=== PATIENT | male | born 1990 | race Two or more races ===

== ENCOUNTER 2017-04-08 14:31 | Emergency (ER) | payer SELFPAY ==
[~2017-04-08] VITALS: Ht 162.6 cm; Wt 59.0 kg
[2017-04-08 17:20] VITALS: BP 130/80
--- NOTE | 2017-04-08 21:11 | Emergency Room Report ---
History of Present Illness General Chief Complaint: Alcohol Intoxication Source: EMS Present Illness Allergies: Coded Allergies: UNABLE TO ASSESS (Unverified , 04/08/17) Nursing Documentation-[facility] Past Medical History Deferred: Pt Cognitively Impaired Physical Exam Vital Signs Date Time Temp Pulse Resp B/P (MAP) Pulse Ox O2 Delivery O2 Flow Rate FiO2 04/08/17 14:05 78 20 130/80 100 Room Air Medical Decision Making Diagnostic Impression: Primary Impression: Acute alcoholic intoxication ER Course RN informed me patient left ED Was not in waiting room or in surrounding ER area Last Vital Signs Date Time Temp Pulse Resp B/P (MAP) Pulse Ox O2 Delivery O2 Flow Rate FiO2 04/08/17 17:20 70 20 130/80 99 Room Air Disposition: LEFT W/OUT BEING SEEN Condition: Unknown Referrals: NOT CHOSEN [facility]/,REFERRING (PCP) TAYLOR STILES M.D. Apr 08, 2017 21:11
== END 2017-04-08 17:30 | disposition left against medical advice (07) ==
LOC: EDBD 14:31 → EMR 17:20 → EDBD 17:20 → EMR 17:30
DX: F10.129 Alcohol abuse with intoxication, unspecified (principal); Z53.21 Procedure and treatment not carried out due to patient leaving prior to being seen by health care provider
CPT/HCPCS: 99281

== ENCOUNTER 2017-10-30 18:58 | Emergency (ER) | payer SELFPAY ==
[~2017-10-30] VITALS: Ht 170.2 cm; Wt 72.6 kg
[2017-10-30 19:30] VITALS: BP 122/78
--- NOTE | 2017-10-30 19:37 | Emergency Room Report ---
History of Present Illness General Chief Complaint: Altered Mental Status Source: Patient, EMS (Vipul Magana MD) Present Illness HPI Patient was found lying down in the middle of the street. Patient is unknown onset . he reports drinking heavily earlier in the day. He denies new injuries or pain. (Vipul Magana MD) Allergies: Coded Allergies: No Known Allergies (Unverified , 10/30/17) UNABLE TO ASSESS (Unverified , 04/08/17) Patient History Past Medical History: see triage record Reviewed Nursing Documentation: PMH: Agreed; PSxH: Agreed (Vipul Magana MD) Nursing Documentation-PMH Past Medical History Deferred: No Family Available Past Medical History: Deferred (Vipul Magana MD) Review of Systems All Other Systems: negative except mentioned in HPI (Vipul Magana MD) Physical Exam Vital Signs Date Time Temp Pulse Resp B/P (MAP) Pulse Ox O2 Delivery O2 Flow Rate FiO2 10/30/17 18:54 99.0 74 16 116/75 99 Room Air 99.0 Sp02 EP Interpretation: reviewed, normal General Appearance: normal inspection, well appearing, no apparent distress, alert Head: atraumatic ENT: normal ENT inspection, hearing grossly normal, normal voice Neck: normal inspection, full range of motion, supple, no bony tend Respiratory: normal inspection, lungs clear, normal breath sounds, no respiratory distress, no retraction, no wheezing Cardiovascular #1: regular rate, rhythm, no edema Gastrointestinal: normal inspection, normal bowel sounds, non tender, soft, no guarding, no hernia Genitourinary: no CVA tenderness Musculoskeletal: normal inspection, back normal, normal range of motion Neurologic: normal inspection, alert, responsive, speech normal Psychiatric: normal inspection, judgement/insight normal, mood/affect normal Skin: normal inspection, normal color, no rash (Vipul Magana MD) Medical Decision Making Diagnostic Impression: Primary Impression: Acute alcoholic intoxication ER Course Patient was in for altered mental status. Differential diagnosis included but was not limited to alcohol intoxication, ischemic stroke, subarachnoid hemorrhage, hypoglycemia, spinal cord injury, neurodegenerative disorder, urinary tract infection, hypoxemia.Patient was noted to have initially confused mental status. Patient had gradual improvement of neurologic status. The patient was endorsed to Dr. Lucia pending sobering (Vipul Magana MD) ER Course Please refer to the initial note for the presentation patient was apparently verbal upon arrival He has been sleeping throughout his stay in the ER At this time of dictation patient has awakened GCS 15 he does admit to drinking alcohol yesterday Patient is ambulatory and requesting to go home patient stable for close outpatient follow-up (Des Lucia DO) Last Vital Signs Date Time Temp Pulse Resp B/P (MAP) Pulse Ox O2 Delivery O2 Flow Rate FiO2 10/30/17 18:54 99.0 74 16 116/75 99 Room Air 99.0 Status: improved (Vipul Magana MD) Status: improved (Des Lucia DO) Disposition: HOME, SELF-CARE Condition: Stable Additional Instructions: Patient is provided with the discharge instructions notified to follow up with primary doctor in the next 2-3 days otherwise return to the er with any worsening symptoms. Please note that this report is being documented using [employer] technology. This can lead to erroneous entry secondary to incorrect interpretation by the dictating instrument. Vipul Magana MD October 30, 2017 19:37 Des Lucia DO October 31, 2017 05:02
[2017-10-30 21:40] VITALS: BP 120/76
[2017-10-31 00:05] VITALS: BP 107/72
[2017-10-31 03:10] VITALS: BP 115/68
[2017-10-31 05:00] VITALS: BP 112/71
[2017-10-31 05:10] VITALS: BP 112/71
== END 2017-10-31 05:10 | disposition home or self-care (01) ==
LOC: EDBD → MERGE 18:58 → EMR 21:04
DX: F10.129 Alcohol abuse with intoxication, unspecified (principal); R41.82 Altered mental status, unspecified
CPT/HCPCS: 99284